=== PATIENT | male | born 1935 | race Caucasian/White ===

== ENCOUNTER 2016-10-31 09:55 | Day surgery (SDC) | payer BC, MEDICARE ==
[~2016-10-31 09:55] MED LIST: ASPIR 8181 MG PO; [UNRECOGNIZED DRUG - REMARK]
== END 2016-10-31 15:15 ==
LOC: SHSB 09:55 → ORW 11:50 → SHSB 14:00
PROC: 0HB1XZZ Excision of Face Skin, External Approach (ICD-10-PCS; principal; 2016-10-31)
PROC: 0HR1X73 Replacement of Face Skin with Autologous Tissue Substitute, Full Thickness, External Approach (ICD-10-PCS; 2016-10-31)
DX: C44.319 Basal cell carcinoma of skin of other parts of face (principal); L57.0 Actinic keratosis; I83.90 Asymptomatic varicose veins of unspecified lower extremity; R42 Dizziness and giddiness; H26.9 Unspecified cataract; H65.00 Acute serous otitis media, unspecified ear; H90.8 Mixed conductive and sensorineural hearing loss, unspecified; Z87.891 Personal history of nicotine dependence; Z85.820 Personal history of malignant melanoma of skin; Z90.89 Acquired absence of other organs; Z98.890 Other specified postprocedural states
CPT/HCPCS: J0690